=== PATIENT | female | born 1960 | race Caucasian/White ===

== ENCOUNTER → 2018-05-14 | Day surgery (SDC) | payer BC ==
[~2018-05-14] MED LIST: ASPIRIN81 MG PO; ATENOLOL-CHLOR1 EAC1 PO; ATENOLOL50 MG PO; ATORVASTATIN CA20 MG PO; BUSPIRONE HCL5 MG PO; CELEBREX200 MG PO; CENTRUM SILVER1 EAC3 PO; COLESTIPOL HCL1 GM PO; DICYCLOMINE HCL10 MG PO; FENTANYL CITRATE/PF 100MCG/2 ML INJ ONE; FISH OIL 1,2001 EACH PO; HYDROCODON-ACE1 EAC9 PO; HYZAAR 50-12.51 EACH PO; LIDOCAINE HCL 2% LOCAL INJ 5 ML SDV VIAL INJ ONE; LOSARTAN POTASS25 MG PO; LOVASTATIN PO; MAGNESIUM COMPLEX PO; METOPROLOL SUC100 MG; MIDAZOLAM HCL 2 MG/2 ML VIAL ONE; NIASPAN500 MG; NITROFURANTOIN100 MG PO; OMEPRAZOLE40 MG PO; OS-CAL 500+D T1 EACH PO; PREMPRO 0.3 MG1 EACH; PROMETHAZINE HC25 M1 PO; PROPOFOL IV EMULSION 10 MG/ML 50 ML VIAL ONE; PROPRANOLOL HCL40 MG PO; QUINAPRIL HCL20 MG PO; SIMVASTATIN40 MG; TRAZODONE HCL50 MG PO; TYLENOL WITH C1 EACH PO; VITAMIN B-COMP1 EAC2 PO; VITAMIN E400 UNI2 PO; ZOFRAN ODT4 MG PO
--- NOTE | 2018-05-14 11:39 | Operative Report ---
DATE OF PROCEDURE: May 14, 2018 REFERRING PHYSICIAN: Dr. Shikha Foreman PROCEDURES PERFORMED 1. Esophagogastroduodenoscopy with biopsies. 2. Colonoscopy with polypectomy. INDICATIONS FOR EGD: Dyspepsia, acid reflux. INDICATIONS FOR COLONOSCOPY: Colorectal cancer screening. Personal history of numerous colon polyps. Family history of colon cancer. MEDICATION: Patient was done under MAC. Please see anesthesiologist's note. PROCEDURE: With the patient in the left lateral decubitus position, the flexible fiberoptic Olympus gastroscope was introduced into the esophagus under direct visualization without any difficulty. There was some patchy erythema noted in the distal esophagus. The scope was then advanced with ease into the stomach, traversing a small sliding hiatal hernia. Mucosa overlying the antrum and the body revealed some patchy erythema and low-grade edema, and biopsies were obtained and sent to stain for H. pylori. A minute peripyloric ulcer was noted without active bleeding or stigmata of recent hemorrhage. It was biopsied. The pylorus was of normal contour and shape. It was intubated with ease, and the scope was advanced all the way to the 2nd portion of the duodenum. The mucosa overlying the proximal 2nd portion grossly appeared to be within normal limits. Some ulcerated nodules were noted in the duodenal bulb, and biopsies were obtained. The scope was then withdrawn back into the stomach and retroflexed. Mucosa overlying the fundus and the cardia appeared to be within normal limits. The scope was then straightened out. The stomach was decompressed. Scope was subsequently withdrawn. Patient tolerated the procedure well. IMPRESSION 1. Distal esophagitis. 2. Small sliding hiatal hernia. 3. Gastritis, biopsied. Biopsies sent to stain for H. pylori. 4. Minute peripyloric ulcer, biopsied. 5. Ulcerated nodules, bulb, biopsied. PLAN: Follow up histology. Increase omeprazole to 40 mg 1 p.o. a.c. b.i.d. The patient was then turned around. After adequate lubrication of the anal canal, a flexible fiberoptic Olympus colonoscope was inserted into the rectum with ease and advanced all the way to the cecum. It was then withdrawn slowly. Mucosa overlying the cecum, ascending colon and transverse colon appeared to be within normal limits. One polyp was snared and 1 polyp was hot biopsied from the descending colon. Three polyps were hot biopsied from the sigmoid colon. Four polyps were hot biopsied from the rectum. The scope was then retroflexed into the distal rectum, and small internal hemorrhoids were noted, none of which was actively bleeding. The scope was then straightened out. The rectosigmoid area as well as the distal rectal area were decompressed. Scope was subsequently withdrawn. Patient tolerated the procedure well. IMPRESSION 1. Descending colon polyps times 2, one snared and one hot biopsied. 2. Sigmoid colon polyps times 3, hot biopsied. 3. Rectal polyps times 4, hot biopsied. 4. Internal hemorrhoids, none actively bleeding. PLAN: Follow up histology. Initiate high-fiber, low-fat diet. Initiate high-fiber supplement. Patient will need a followup colonoscopy in 2 to 3 years. Job#: [id number] cc:SHIKHA FOREMAN MD
== END | disposition home or self-care (01) ==
LOC: OR 07:01
PROVIDERS: ATTEND Internal Medicine Gastroenterology
DX: Z12.11 Encounter for screening for malignant neoplasm of colon (principal); K63.5 Polyp of colon; K62.1 Rectal polyp; K29.70 Gastritis, unspecified, without bleeding; K25.9 Gastric ulcer, unspecified as acute or chronic, without hemorrhage or perforation; K29.80 Duodenitis without bleeding; K21.9 Gastro-esophageal reflux disease without esophagitis; K20.9 Esophagitis, unspecified; K44.9 Diaphragmatic hernia without obstruction or gangrene; K64.8 Other hemorrhoids; I10 Essential (primary) hypertension; E78.00 Pure hypercholesterolemia, unspecified; F41.9 Anxiety disorder, unspecified; F17.210 Nicotine dependence, cigarettes, uncomplicated; Z88.0 Allergy status to penicillin; Z88.1 Allergy status to other antibiotic agents; Z79.82 Long term (current) use of aspirin; Z80.0 Family history of malignant neoplasm of digestive organs
CPT/HCPCS: 43239; 45384; 45385; J2001; J2250; 45378

== ENCOUNTER → 2018-08-07 | Outpatient (CLI) | payer BC ==
[~2018-08-07] MED LIST changes: -FENTANYL CITRATE/PF 100MCG/2 ML INJ ONE; -LIDOCAINE HCL 2% LOCAL INJ 5 ML SDV VIAL INJ ONE; -MIDAZOLAM HCL 2 MG/2 ML VIAL ONE; -PROPOFOL IV EMULSION 10 MG/ML 50 ML VIAL ONE
--- NOTE | 2018-08-07 12:28 | Diagnostic Imaging Report ---
EXAM: Liver Ultrasound INDICATION: \S\ALCOHOL ABUSE COMPARISON: CT abdomen and pelvis 05/28/2017 TECHNIQUE: Transverse and longitudinal images of the liver were obtained. FINDINGS: FINDINGS: Liver: Size: 13.4 cm in the right midclavicular line, normal Appearance: Increased echogenicity, smooth contour Mass: No focal masses Gallbladder: Stones/Sludge: None Wall: 0.2 cm Appearance: No wall thickening, pericholecystic fluid or hydrops. Sonographic Duenas's Sign: Negative Bile Ducts: Intrahepatic Ducts: No dilatation Extrahepatic Ducts: Common bile duct measures 0.7 cm, no dilatation Pancreas: Visualized portions of the pancreatic head, neck and proximal body are normal. Kidneys: Length: Right 10.3 cm Echogenicity: Normal Collecting System: No hydronephrosis Stone: 0.4 cm echogenic focus with posterior shadowing in the interpolar region of the right kidney. Cyst/Mass: None Vessels: Aorta: Visualized portions are normal Inferior Vena Cava: Visualized portions are normal Main Portal Vein: 1.0 cm, normal size with hepatopetal flow. Free Fluid: No ascites or pleural effusion IMPRESSION: Hepatic steatosis. Small echogenic focus in the right kidney suggestive of nonobstructing nephrolithiasis. This was not present on CT from 05/28/2017. Signed by: Dr. Zuleyma Mendez M.D. on 08/07/2018 12:25 PM
== END ==
LOC: US 10:41
PROVIDERS: ATTEND Family Medicine
DX: F10.10 Alcohol abuse, uncomplicated (principal); K76.0 Fatty (change of) liver, not elsewhere classified
CPT/HCPCS: 76705

== ENCOUNTER → 2019-02-17 | Day surgery (SDC) | payer BC ==
[~2019-02-17] MED LIST changes: +FENTANYL CITRATE/PF 100MCG/2 ML INJ ONE; +HYOSCYAMINE SULFATE 0.5 MG/ML INJ ONE; +IBANDRONATE SO150 MG PO; +KLOR-CON 1010 MEQ PO; +MIDAZOLAM HCL 2 MG/2 ML VIAL ONE; +MSM1000 MG PO; +PROPOFOL IV EMULSION 10 MG/ML 20 ML VIAL ONE; +PROPOFOL IV EMULSION 10 MG/ML 50 ML VIAL ONE; +[UNRECOGNIZED DRUG - OTHER] PO
--- OUTSIDE RECORDS SUMMARY | 2019-02-17 07:14 | XMS REPORT ---
Author Author [facility] Address Unknown Phone Unavailable Care Team Providers Care Medical Assistant Dermatology Name Role Phone Heavenly FOREMAN Unavailable Unavailable Problems This patient has no known problems. Allergies, Adverse Reactions, Alerts This patient has no known allergies or adverse reactions. Medications This patient has no known medications. Results Test Description Test Time Test Comments Text Results Atomic Results Result Comments LIVER 2018-08-07 12:16:00 [place] [address] Patient Name: MARIA ESTHER BARBOZA MR #: [id number] : 1960 Age/Sex: 58/F Req #: [id number] Adm Physician: Ordered by: SHIKHA FOREMAN MD Report #: [id number] Location: US Room/Bed: Procedure: [id number] US/US LIVER Exam Date: Exam Time: REPORT STATUS: Signed EXAM: Liver Ultrasound INDICATION: COMPARISON: CT abdomen and pelvis 05/28/2017 TECHNIQUE: Transverse and longitudinal images of the liver were obtained. FINDINGS: FINDINGS: Liver: Size: 13.4 cm in the right midclavicular line, normal Appearance: Increased echogenicity, smooth contour Mass: No focal masses Gallbladder: Stones/Sludge: None Wall: 0.2 cm Appearance: No wall thickening, pericholecystic fluid or hydrops. Sonographic Duenas's Sign: Negative Bile Ducts: Intrahepatic Ducts: No dilatation Extrahepatic Ducts: Common bile duct measures 0.7 cm, no dilatation Pancreas: Visualized portions of the pancreatic head, neck and proximal body are normal. Kidneys: Length: Right 10.3 cm Echogenicity: Normal Collecting System: No hydronephrosis Stone: 0.4 cm echogenic focus with posterior shadowing in the interpolar region of the right kidney. Cyst/Mass: None Vessels: Aorta: Visualized portions are normal Inferior Vena Cava: Visualized portions are normal Main Portal Vein: 1.0 cm, normal size with hepatopetal flow. Free Fluid: No ascites or pleural effusion IMPRESSION: Hepatic steatosis. Small echogenic focus in the right kidney suggestive of nonobstructing nephrolithiasis. This was not present on CT from 05/28/2017. Signed by: Dr. Vanessa Pat M.D. on 08/07/2018 12:25 PM Dictated By: VANESSA PAT MD 1225 Transcribed By: ANA M on 08/07/18 1225 COPY TO: SHIKHA FOREMAN MD
[2019-02-17 11:34] LABS: WBC,FECAL (FECAL LACTOFERRIN) NEGATIVE (NEGATIVE)
[2019-02-17 11:45] VITALS: BP 151/83
[2019-02-17 15:04] LABS: C DIFFICILE TOXIN A&B AMP PROB NEGATIVE (NEGATIVE)
--- NOTE | 2019-02-17 17:01 | Operative Report ---
DATE OF PROCEDURE: 02/17/2019 SURGEON: Perry Gudino MD PROCEDURES: Esophagogastroduodenoscopy with biopsies and colonoscopy with polypectomy and biopsies. INDICATION FOR EGD: Dyspepsia. INDICATIONS FOR COLONOSCOPY: Diarrhea, intermittent. Fecal urgency with decrease in stool caliber. History of colon polyps. MEDICATIONS: The patient was done under MAC, please see anesthesiologist's note. PROCEDURE IN DETAIL: With the patient in left lateral decubitus position, flexible fiberoptic Olympus gastroscope was introduced into the esophagus under direct visualization without any difficulty. The esophagus appeared to be within normal limits. The scope was then advanced with ease into the stomach traversing a small sliding hiatal hernia. Mucosa overlying the antrum and the body revealed some patchy erythema and low-grade to moderate edema. Biopsies were obtained and sent to stain for H pylori. Pylorus appeared to be of normal contour and shape, it was intubated with ease and the scope was advanced all the way to the second portion of the duodenum. The scope was then withdrawn slowly and biopsies were obtained from the proximal second portion and the duodenal bulb to rule out sprue. Ulcerated nodule described previously appeared to have resolved. The scope was then withdrawn back into the stomach and retroflexed and mucosa overlying the fundus and cardia appeared to be within normal limits. The scope was then straightened out, it was subsequently withdrawn. The patient tolerated the procedure well. IMPRESSION: 1. Normal esophagus. 2. Small sliding hiatal hernia. 3. Gastritis, biopsied. Biopsies sent to stain for Helicobacter pylori. 4. Rule out sprue. PLAN: Follow up histology. Continue omeprazole 40 mg one p.o. a.c. b.i.d. add Carafate 1 g p.o. a.c. t.i.d. and at bedtime. PROCEDURE IN DETAIL: The patient was then turned around after adequate lubrication of the anal canal, a flexible fiberoptic Olympus colonoscope was inserted into the rectum with ease and advanced all the way to the cecum. The ileocecal valve was intubated and the scope was advanced into the terminal ileum. Biopsies were obtained and the scope was then withdrawn slowly and mucosa overlying the cecum, ascending colon, transverse colon appeared to be within normal limits. Three minute polyps were hot biopsied and two polyps were snared from the descending colon. The mucosa overlying the distal, descending, sigmoid and rectum revealed some patchy mild inflammatory changes and random biopsies were obtained. Two polyps were hot biopsied from the sigmoid colon and 4 minute polyps were hot biopsied from the rectum. The scope was then retroflexed into the distal rectum and small internal hemorrhoids were noted, none of which was actively bleeding. The scope was then straightened out, it was subsequently withdrawn. After securing an adequate stool specimen that was sent for the appropriate stool studies. The patient tolerated the procedure well. IMPRESSION: 1. Descending colon polyps x5, two snared and 2 hot biopsied. 2. Mild segmental colitis, left colon biopsied. 3. Sigmoid colon polyps x2, hot biopsied. 4. Rectal polyps, minute x4 hot biopsied. 5. Proctitis, mild, biopsies obtained. 6. Internal hemorrhoids, none actively bleeding. PLAN: Follow up histology. Follow up stool studies. Initiate Bentyl 10 mg one p.o. t.i.d. VSL#3 one p.o. daily. The patient might benefit from a followup colonoscopy in 3 years. Perry Gudino MD [facility] [place] /[id number] cc: Lito Echols MD
== END | disposition home or self-care (01) ==
LOC: OR 07:11
PROVIDERS: ATTEND Internal Medicine Gastroenterology
DX: K59.00 Constipation, unspecified (principal); K63.5 Polyp of colon; K62.1 Rectal polyp; K31.89 Other diseases of stomach and duodenum; K29.70 Gastritis, unspecified, without bleeding; K25.9 Gastric ulcer, unspecified as acute or chronic, without hemorrhage or perforation; K50.10 Crohn's disease of large intestine without complications; K44.9 Diaphragmatic hernia without obstruction or gangrene; K62.89 Other specified diseases of anus and rectum; K64.8 Other hemorrhoids; K21.9 Gastro-esophageal reflux disease without esophagitis; E78.00 Pure hypercholesterolemia, unspecified; Z01.810 Encounter for preprocedural cardiovascular examination; R03.0 Elevated blood-pressure reading, without diagnosis of hypertension
CPT/HCPCS: 43239; 45380; 45384; 45385; 83630; 83993; 87045; 87177; 87328; 87493; 93005; J1980; J2250; J2704 ×2; 45378

== ENCOUNTER 2020-09-04 10:30 | Emergency (ER) | payer BC ==
[~2020-09-04] VITALS: Ht 149.9 cm; Wt 49.4 kg
[~2020-09-04 10:30] MED LIST changes: -FENTANYL CITRATE/PF 100MCG/2 ML INJ ONE; -HYOSCYAMINE SULFATE 0.5 MG/ML INJ ONE; -MIDAZOLAM HCL 2 MG/2 ML VIAL ONE; -PROPOFOL IV EMULSION 10 MG/ML 20 ML VIAL ONE; -PROPOFOL IV EMULSION 10 MG/ML 50 ML VIAL ONE
[2020-09-04] MEDS ORDERED: ACETAMINOPHEN 325 MG TAB PO ONE (11:00)
[2020-09-04] MEDS ORDERED: FAMOTIDINE 20 MG/2 ML VIAL IV ONE (11:00)
[2020-09-04] MEDS ORDERED: NITROGLYCERIN 2% OINT 1 GM PKT TOP ONE (11:00)
[2020-09-04] MEDS ORDERED: ASPIRIN 81 MG CHEW TAB PO ONE (11:10)
--- NOTE | 2020-09-04 11:12 | Diagnostic Imaging Report ---
Exam: CXR 2 VIEW - HOPD Date: 09/04/2020 11:08 AM INDICATION: ^cp Comparison: None FINDINGS: Lines/Tubes:None Lungs:The lungs are well inflated. No focal consolidation or pulmonary edema. Pleura:No pleural effusion. No pneumothorax. Heart/Mediastinum:The cardiomediastinal silhouette is normal in size and contour. Bones/Soft Tissues: No acute osseous abnormality. Mild multilevel degenerative changes of the spine are noted. Upper abdomen: Unremarkable. IMPRESSION: Negative for acute intrathoracic process. Signed by: Kevin Mustafa MD on 09/04/2020 11:08 AM
[2020-09-04] MEDS ORDERED: ASPIRIN 325 MG TAB PO ONE (11:15)
--- NOTE | 2020-09-04 11:29 | NUR ---
FIRST TRIED [facility]; NO BEDS AT [facility], THEN PT CHANGED MIND AND ONLY WANTS AMI, PT STATES LYRIC JARVIS.
--- NOTE | 2020-09-04 11:31 | NUR ---
TRANSFER INITIATED TO [facility]. HOP TRAINER STATES SHE ISNT SURE WHAT A TRANSFER CENTER IS AND SENT CALL TO PHARMACY. RE CALLING NOW
--- OUTSIDE RECORDS SUMMARY | 2020-09-04 11:34 | XMS REPORT | Continuity of Care Document ---
Author Author [facility] t Organization [facility] Address [address] [place] [address] Phone Unavailable Care Team Providers Care Rv Technician Name Role Phone SEBASTIEN Thierry CHAPMAN Attphys Unavailable Heavenly FOREMAN Attphys Unavailable DEEJAYROSIO Prince Admphys Unavailable Payers Payer Name Policy Type Policy Number Effective Date Expiration Date S ource Problems This patient has no known problems. Allergies, Adverse Reactions, Alerts Allergy Name Allergy Type Status Severity Reaction(s) Onset Date Inacti ve Date Treating Clinician Comments Source NO KNOWN CONTRAST MEDIA ALLERG DA Active U 2001-04-13 00: 00:00 [facility] No Known Food Allergies DA Active U 2001-04-13 00:00:00 [facility] PENICILLIN DA Active U 2001-04-13 00:00:00 [facility] Medications This patient has no known medications. Procedures This patient has no known procedures. Results Test Description Test Time Test Comments Results Result Comments Source CXR 2 VIEW - HOPD 2020-09-04 11:08:00 [facility] BAR[facility]EL Perez : 1960 Sex: F [facility] [address] [place] [address] Patient Name: MARIA ESTHER BARBOZA MR #: [id number] : 1960 Age/Sex: 60/F Req #: [id number] Adm Physician: Ordered by: ARI CROWE MD Report #: [id number] Location: [facility] Room/Bed: Procedure: [id number] HOPD/CXR 2 VIEW - HOPD Exam Date: 09/04/20 Exam Time: 1105 REPORT STATUS: Signed Exam: CXR 2 VIEW - HOPD Date: 09/04/2020 11:08 AM INDICATION: cp Comparison: None FINDINGS: Lines/Tubes:None Lungs:The lungs are well inflated. No focal consolidation or pulmonary edema. Pleura:No pleural effusion. No pneumothorax. Heart/Mediastinum:The cardiomediastinal silhouette is normal in size and contour. Bones/Soft Tissues: No acute osseous abnormality. Mild multilevel degenerative changes of the spine are noted. Upper abdomen: Unremarkable. IMPRESSION: Negative for acute intrathoracic process. Signed by: Anthony Mustafa MD on 09/04/2020 11:08 AM Dictated By: ANTHONY MUSTAFA MD 07 Transcribed By: ANA M on 09/04/201107 COPY TO: ARI CROWE MD LIVER 2018-08-07 12:16:00 [place] [address] Patient Name: MARIA ESTHER BARBOZA MR #: [id number] : 1960 Age/Sex: 58/F Req #: [id number] Adm Physician: Ordered by: SHIKHA FOREMAN MD Report #: [id number] Location: Room/Bed: Procedure: [id number] US/US LIVER Exam Date: Exam Time: REPORT [...]
--- OUTSIDE RECORDS SUMMARY | 2020-09-04 11:37 | XMS REPORT | Continuity of Care Document ---
Author Author [facility] t Organization [facility] Address [address] [place] [address] Phone Unavailable Care Team Providers Care Bailer Operators Supervisor Name Role Phone SEBASTIEN Thierry CHAPMAN Attphys [...] ALLERG DA Active U 2001-04-13 00: 00:00 [facility] No Known Food Allergies DA Active U 2001-04-13 00:00:00 [facility] PENICILLIN DA Active U 2001-04-13 00:00:00 [facility] Medications This patient has no known medications. Procedures This patient has no known procedures. Results Test Description Test Time Test Comments Results Result Comments Source CXR 2 VIEW - HOPD 2020-09-04 11:08:00 [facility] YODIT BARBOZAABIMAEL Perez : 1960 Sex: F [facility] [address] [place] [address] Patient Name: MARIA ESTHER BARBOZA MR #: [id number] : 1960 Age/Sex: 60/F Req #: [id number] Adm Physician: Ordered by: ARI CROWE MD Report #: [id number] Location: [facility] Room/Bed: Procedure: [id number] HOPD/CXR 2 VIEW - HOPD Exam Date: [...] TO: ARI CROWE MD LIVER 2018-08-07 12:16:00 [place] [address] Patient Name: MARIA ESTHER BARBOZA MR #: [id number] : 1960 Age/Sex: 58/F Req #: [id number] Adm Physician: Ordered by: SHIKHA FOREMAN MD Report #: [id number] Location: Room/Bed: Procedure: [id number] US/US LIVER Exam Date: Exam Time: REPORT [...]
--- NOTE | 2020-09-04 11:50 | NUR ---
transfer center [facility]
--- NOTE | 2020-09-04 12:19 | Emergency Department Note ---
History of Present Illnes History of Present Illness Chief Complaint: Chest Pain History of Present Illness This is a 60 year old female smoker, hx htn c/o chest tightness on and off for few days, sent over by Dr Echols . Historian: Patient Arrival Mode: Car Engineering And Operations Director Required: No Onset (how long ago): day(s) Radiation: Reports non-radiation Severity: moderate Onset quality: gradual Timing of current episode: intermittent Progression: waxing and waning Relieving factors: none Exacerbating factors: none Associated symptoms: Reports denies other symptoms Treatments prior to arrival: none Past Medical/Family History Physician Review I have reviewed the patient's past medical and family history. Any updates have been documented here. Past Medical History Recent Fever: No Clinical Suspicion of Infectio: No New/Unexplained Change in Ment: No Past Medical History: Hypertension, Hyperlipedemia Other Medical History: cholesterol Other Surgery: Cataract Bilateral lasik Social History Smoking Cessation: Current every day smoker Alcohol Use: Occasional Any Illegal Drug Use: No TB Exposure/Symptoms: No Physically hurt or threatened: No Family History Family history of heart diseas: No Other Last Tetanus: Unknown Any Pre-Existing Lines (PICC,: No Is patient up to date on immun: No Review of Systems Review of Systems Constitutional: Reports no symptoms EENTM: Reports no symptoms Cardiovascular: Reports as per HPI, Reports chest pain Respiratory: Reports no symptoms Gastrointestinal: Reports no symptoms Genitourinary: Reports no symptoms Musculoskeletal: Reports no symptoms Integumentary: Reports no symptoms Neurological: Reports no symptoms Psychological: Reports no symptoms Endocrine: Reports no symptoms Hematological/Lymphatic: Reports no symptoms Physical Exam Related Data Allergies: Coded Allergies: Penicillins (Verified Allergy, Unknown, 07/04/16) Vital signs reviewed: Yes Physical Exam CONSTITUTIONAL Constitutional: Present well-developed, Present well-nourished HENT HENT: Present normocephalic, Present atraumatic, Present oropharynx clear/moist, Present nose normal HENT L/R: Present left ext ear normal, Present right ext ear normal EYES Eyes: Reports PERRL, Reports conjunctivae normal NECK Neck: Present ROM normal PULMONARY Pulmonary: Present effort normal, Present breath sounds normal CARDIOVASCULAR Cardiovascular: Present regular rhythm, Present heart sounds normal, Present capillary refill normal, Present normal rate GASTROINTESTINAL Abdominal: Present soft, Present nontender, Present bowel sounds normal GENITOURINARY Genitourinary: Present exam deferred SKIN Skin: Present warm, Present dry MUSCULOSKELETAL Musculoskeletal: Present ROM normal NEUROLOGICAL Neurological: Present alert, Present oriented x 3, Present no gross motor or sensory deficits PSYCHOLOGICAL Psychological: Present mood/affect normal, Present judgement normal Results Laboratory Lab results reviewed: Yes Laboratory comments no acute, CMN Imaging Imaging results reviewed: Yes Impressions cxr Ok Procedures 12 Lead ECG Interpretation ECG Interpretation : ECG: ECG 1 Engineering And Operations Director: Interpreted by ED physician Date: Sep 04, 2020 Time: 10:38 Prior ECG tracings: reviewed Rate: normal BPM: 65 QRS axis: normal T wave elevation: aVR, V1, V2, V3 Clinical Impression: abnormal ECG Clinical Decision Tools HEART Score Date Taken: Sep 04, 2020 Time taken: 11:04 HEART Score: HEART Score Response (Comments) Value History Moderately suspicious 1 EKG Non specific repolarization 1 Age 45 - 65 1 Risk factors 1 or 2 risk factors 1 Troponin 1-3x normal limit Total 4 Assessment & Plan Medical Decision Making MDM GERD /cardiac/ esophagitis Reassessment Reassessment time: 11:57 Reassessment doing fair, no pain now Assessment & Plan Final Impression: (1) Chest pain (2) GERD (gastroesophageal reflux disease) Depart Disposition: ADMITTED Home Meds Active Scripts Atenolol (ATENOLOL) 50 Mg Tablet, 50 MG PO DAILY, #90 1 Refill Prov:KATIE THOMPSON MD 07/06/16 Reported Medications Ibandronate Sodium (IBANDRONATE SODIUM) 150 Mg Tablet, 150 MG PO MONTHLY 02/15/19 Potassium Chloride (KLOR-CON 10) 10 Meq Tablet.er, 10 MEQ PO DAILY 02/15/19 [[place] [facility]] No Conflict Check, 500 MG PO DAILY 02/15/19 Methylsulfonylmethane (MSM) 1,000 Mg Capsule, 1000 MG PO DAILY 02/15/19 Calcium Carbonate/Vitamin D3 (OS-SPENCER 500+D TABLET) 1 Each Tablet, 2 TAB PO BID, #30 TAB 05/13/18 Mu-Vits-Min Th/Lycopene/Lutein (CENTRUM SILVER TABLET) 1 Each Tablet, 1 TAB PO DAILY 05/13/18 Trazodone Hcl (TRAZODONE HCL) 50 Mg Tablet, 100 MG PO DAILY, #30 TAB 05/14/17 Propranolol Hcl (PROPRANOLOL HCL) 40 Mg Tablet, 2 TAB PO BID, #60 TAB 05/14/17 Losartan/Hydrochlorothiazide (HYZAAR 50-12.5 TABLET) 1 Each Tablet, 1 TAB PO DAILY 05/14/17 Colestipol Hcl,Micronized (COLESTIPOL HCL) 1 Gm Tablet, 2 TAB PO DAILY, #30 TAB 05/14/17 Celecoxib (CELEBREX) 200 Mg Capsule, 200 MG PO DAILY 12/13/14 Atorvastatin Calcium (ATORVASTATIN CALCIUM) 20 Mg Tablet, 20 MG PO HS 12/13/14 Omeprazole (OMEPRAZOLE) 40 Mg Capsule.dr, 40 MG PO DAILY 12/13/14 Dicyclomine Hcl (DICYCLOMINE HCL) 10 Mg Capsule, 10 MG PO TID 12/13/14 Medications in the ED Aspirin 325 mg ONCE ONCE PO ; Start 09/04/20 at 11:00; Stop 09/04/20 at 11:01; Status UNV Famotidine 20 mg ONCE ONCE IV ; Start 09/04/20 at 11:00; Stop 09/04/20 at 11:01; Status UNV Nitroglycerin 1 gm ONCE ONCE TOP ; Start 09/04/20 at 11:00; Stop 09/04/20 at 11:01 Acetaminophen 650 mg ONCE ONCE PO ; Start 09/04/20 at 11:00; Stop 09/04/20 at 11:01; Status UNV Physician Attestation Provider Attestation high risk for cardiac chest pain, will transfer to [facility] ARI CROWE MD Sep 04, 2020 11:01
--- NOTE | 2020-09-04 12:21 | NUR ---
[facility] call center calling back for doc to doc
--- NOTE | 2020-09-04 12:52 | NUR ---
[facility] CALLED FOR TRANSPORT ETA
--- NOTE | 2020-09-04 12:55 | NUR ---
faxed face sheet [phone]
[2020-09-05] MEDS ORDERED: ASPIRIN 81 MG ENTERIC COATED PO SCH (09:00)
[2020-09-05] MEDS ORDERED: NICOTINE 14 MG/EA PATCH TOP SCH (09:00)
== END 2020-09-04 13:50 | disposition short-term general hospital (02) ==
LOC: FSED 11:02 → ERHOLD 11:03 → UNDOADMOB 11:03 → ERHOLD 13:50
DX: R07.89 Other chest pain (principal); K21.9 Gastro-esophageal reflux disease without esophagitis; I10 Essential (primary) hypertension; E78.5 Hyperlipidemia, unspecified; R94.31 Abnormal electrocardiogram [ECG] [EKG]; F17.210 Nicotine dependence, cigarettes, uncomplicated
CPT/HCPCS: 71046; 80053; 81003; 82553; 84484; 85025; 93005; 99284

== ENCOUNTER 2024-11-20 21:22 | Emergency (ER) | payer BC ==
[~2024-11-20] VITALS: Ht 149.9 cm; Wt 49.4 kg
[~2024-11-20 21:22] MED LIST changes: +BUSPIRONE HCL10 MG PO; +HYZAAR 100-12.1 EACH PO; +LEVOCETIRIZINE D5 MG PO; +PREVAGEN PO
[2024-11-21] MEDS ORDERED: DEXAMETHASONE SOD PHOS 10 MG/1 ML VIAL ONE (00:47)
[2024-11-21] MEDS: DEXAMETHASONE SOD PHOS 10 MG/1 ML VIAL IM ONE (00:51)
[2024-11-21] MEDS ORDERED: MEDROL4 M2 PO (01:02)
[2024-11-21] MEDS ORDERED: ULTRAM 50MG50 MG PO (01:02)
[2024-11-21] MEDS ORDERED: METHOCARBAMOL750 MG PO (01:02)
[2024-11-21 01:07] VITALS: PULSE 82; RESP 17; TEMP 98.4; O2SAT 100
== END 2024-11-21 01:10 | disposition home or self-care (01) ==
LOC: ER 23:35
DX: S16.1XXA Strain of muscle, fascia and tendon at neck level, initial encounter (principal); S00.81XA Abrasion of other part of head, initial encounter; V43.52XA Car driver injured in collision with other type car in traffic accident, initial encounter; Y92.488 Other paved roadways as the place of occurrence of the external cause; I10 Essential (primary) hypertension; E78.5 Hyperlipidemia, unspecified; E78.00 Pure hypercholesterolemia, unspecified
CPT/HCPCS: 70450; 72125; 99283; J1100

== ENCOUNTER 2024-11-29 08:42 | Observation (INO) | payer BC ==
[2024-11-29] VITALS (9 sets, daily range): BP systolic 97–126; BP diastolic 50–74; PULSE 62–96; RESP 18–19; TEMP 97.2–98.4; O2SAT 96–99
[~2024-11-29] VITALS: Ht 149.9 cm; Wt 49.4 kg
[~2024-11-29 08:42] MED LIST changes: +MEDROL4 M2 PO; +METHOCARBAMOL750 MG PO; +ULTRAM 50MG50 MG PO
[2024-11-29 09:08] LABS: BASOPHILS % 0.1 % (0.0-1.0); EOSINOPHILS # (AUTO) 0.1 (0.0-0.4); EOSINOPHILS % 0.9 % (0.0-6.0); HEMATOCRIT 34.9 % (34.2-44.1); HEMOGLOBIN 11.9 g/dL (12.0-16.0); LYMPHOCYTES # (AUTO) 1.3 (1.0-3.2); LYMPHOCYTES % 9.2 % (18.0-39.1); MEAN CORPUSCULAR HEMOGLOBIN 28.4 pg (28-32); MEAN CORPUSCULAR HGB CONC 34.1 g/dL (31-35); MEAN CORPUSCULAR VOLUME 83.3 fL (81-99); MONOCYTES # (AUTO) 1.4 (0.2-0.8); MONOCYTES % 9.5 % (4.4-11.3); NEUTROPHILS # (AUTO) 11.4 (2.1-6.9); NEUTROPHILS % 79.5 % (38.7-80.0); PLATELET COUNT 318 x10e3/uL (140-360); RED BLOOD COUNT 4.19 x10e6/uL (3.6-5.1); RED CELL DISTRIBUTION WIDTH 15.2 % (11.7-14.4); WHITE BLOOD COUNT 14.39 x10e3/uL (4.8-10.8)
[2024-11-29] MEDS: MULTIVITAMINS- 12 INJECTION 10 ML, FOLIC ACID MDV 1 MG, THIAMINE HCL INJ 100 MG in SODI... IV ONE (09:09)
[2024-11-29 09:34] LABS: ALBUMIN 3.4 g/dL (3.5-5.0); ANION GAP 17.3 mmol/L (8-16); BILIRUBIN,TOTAL 0.5 mg/dL (0.2-1.2); CALCIUM 9.6 mg/dL (8.4-10.2); CREATININE, SERUM 0.84 mg/dL (0.57-1.11); TOTAL PROTEIN 6.9 g/dL (6.5-8.1)
[2024-11-29 09:35] LABS: POTASSIUM 2.3 mmol/L (3.5-5.1)
[2024-11-29] MEDS ORDERED: SODIUM CHLORIDE FLUSH 10 ML SYR INJ PRN (11:30)
[2024-11-29] MEDS ORDERED: ONDANSETRON HCL INJ 2MG/ML 2ML 2 MG/ML VIAL IV PRN (11:30)
[2024-11-29] MEDS: KCL 20 MEQ PACKET/ ORAL SOLN PO ONE (11:37)
[2024-11-29] MEDS: POTASSIUM CHLORIDE 20MEQ/100ML 200 ML IV ONE (11:37)
[2024-11-29] MEDS: POTASSIUM CHLORIDE 20MEQ/100ML 100 ML IV SCH (16:30)
[2024-11-29] MEDS: ACETAMINOPHEN 325 MG TAB PO PRN (16:31)
[2024-11-29] MEDS ORDERED: THIAMINE HCL INJ 100 MG/ML 2ML VIAL IV ONE (20:00)
[2024-11-29] MEDS: POTASSIUM CHLORIDE 20MEQ/100ML 100 ML IV ONE (21:02)
[2024-11-29] MEDS: TRAMADOL HCL 50 MG TAB PO PRN (21:03)
[2024-11-30] VITALS (7 sets, daily range): BP systolic 108–151; BP diastolic 61–77; PULSE 69–96; RESP 18–21; TEMP 97.4–98.1; O2SAT 20–100
[2024-11-30 08:45] LABS: BASOPHILS % 0.2 % (0.0-1.0); EOSINOPHILS # (AUTO) 0.1 (0.0-0.4); EOSINOPHILS % 1.5 % (0.0-6.0); HEMOGLOBIN 10.3 g/dL (12.0-16.0); LYMPHOCYTES # (AUTO) 1.6 (1.0-3.2); LYMPHOCYTES % 16.3 % (18.0-39.1); MEAN CORPUSCULAR HEMOGLOBIN 29.3 pg (28-32); MEAN CORPUSCULAR HGB CONC 33.2 g/dL (31-35); MEAN CORPUSCULAR VOLUME 88.1 fL (81-99); MONOCYTES # (AUTO) 0.9 (0.2-0.8); MONOCYTES % 9.7 % (4.4-11.3); NEUTROPHILS # (AUTO) 6.8 (2.1-6.9); NEUTROPHILS % 71.6 % (38.7-80.0); PLATELET COUNT 271 x10e3/uL (140-360); RED BLOOD COUNT 3.52 x10e6/uL (3.6-5.1); RED CELL DISTRIBUTION WIDTH 15.6 % (11.7-14.4)
[2024-11-30 09:11] LABS: ALBUMIN 2.7 g/dL (3.5-5.0); ALBUMIN/GLOBULIN RATIO 0.9 (0.8-2.0); ALKALINE PHOSPHATASE 67 IU/L (40-150); ANION GAP 11.9 mmol/L (8-16); BILIRUBIN,TOTAL 0.2 mg/dL (0.2-1.2); BLOOD UREA NITROGEN 7 mg/dL (7-26); BUN/CREATININE RATIO 10 (6-25); CALCIUM 8.1 mg/dL (8.4-10.2); CARBON DIOXIDE 25 mmol/L (22-29); CHLORIDE 100 mmol/L (98-107); EST GLOMERULAR FILTRATION RATE 98 ML/MIN (>=60); GLUCOSE 93 mg/dL (74-118); SODIUM 134 mmol/L (136-145); TOTAL PROTEIN 5.6 g/dL (6.5-8.1)
[2024-11-30 09:15] LABS: ALANINE AMINOTRANSFERASE < 6 IU/L (0-55)
[2024-11-30 09:22] LABS: POTASSIUM 2.9 mmol/L (3.5-5.1)
[2024-11-30] MEDS: POTASSIUM CHLORIDE 20MEQ/100ML 100 ML IV SCH (10:05)
[2024-11-30] MEDS: TRAMADOL HCL 50 MG TAB PO ONE (17:44)
[2024-11-30] MEDS: DIPHENHYDRAMINE HCL 25 MG CAP PO ONE (17:44)
[2024-12-01] VITALS: BP 102/65; PULSE 81; RESP 17; TEMP 98.1; O2SAT 100
[2024-12-01 04:00] VITALS: BP 125/71; PULSE 74; RESP 21; TEMP 98.1; O2SAT 100
[2024-12-01 07:20] LABS: CALCIUM 8.2 mg/dL (8.4-10.2); CARBON DIOXIDE 23 mmol/L (22-29); CHLORIDE 102 mmol/L (98-107); CREATININE, SERUM 0.67 mg/dL (0.57-1.11); EST GLOMERULAR FILTRATION RATE 99 ML/MIN (>=60); GLUCOSE 79 mg/dL (74-118); SODIUM 134 mmol/L (136-145)
[2024-12-01 07:23] LABS: BLOOD UREA NITROGEN < 5 mg/dL (7-26); BUN/CREATININE RATIO 7 (6-25)
[2024-12-01 08:00] VITALS: BP 137/73; PULSE 80; RESP 20; TEMP 97.8; O2SAT 97
[2024-12-01 09:00] VITALS: BP 137/73; PULSE 80; RESP 20; TEMP 97.8; O2SAT 97
[2024-12-01] MEDS: POTASSIUM CHLORIDE 20 MEQ TAB CR PO ONE (11:18)
== END 2024-12-01 11:30 | disposition home or self-care (01) ==
LOC: ER 08:45 → ERHOLD 11:27 → MED/SURG3 12:26
PROVIDERS: ADMIT Family Medicine; ATTEND Family Medicine
DX: E87.6 Hypokalemia (principal); E51.9 Thiamine deficiency, unspecified; F10.27 Alcohol dependence with alcohol-induced persisting dementia; F10.26 Alcohol dependence with alcohol-induced persisting amnestic disorder; G31.2 Degeneration of nervous system due to alcohol; J44.9 Chronic obstructive pulmonary disease, unspecified; I12.9 Hypertensive chronic kidney disease with stage 1 through stage 4 chronic kidney disease, or unspecified chronic kidney disease; N18.31 Chronic kidney disease, stage 3a; K21.9 Gastro-esophageal reflux disease without esophagitis; Z79.899 Other long term (current) drug therapy
CPT/HCPCS: 36415 ×3; 36573; 71045; 80048; 80053 ×2; 82140; 83735; 84425; 85025 ×2; 99284; G0378 ×3; J3411; J3480 ×2; J7030; 36569